=== PATIENT | male | born 1995 | race Caucasian/White ===

== ENCOUNTER 2016-10-25 02:05 | Emergency (ER) | payer SELFPAY ==
[2016-10-25 02:39] VITALS: RESP 16; TEMP 98.2
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
[2016-10-25 03:56] VITALS: BP 138/78; PULSE 84; O2SAT 96
== END 2016-10-25 03:57 | disposition home or self-care (01) ==
PROC: 0HQ3XZZ Repair Left Ear Skin, External Approach (ICD-10-PCS; principal; 2016-10-25)
PROC: 0HQ0XZZ Repair Scalp Skin, External Approach (ICD-10-PCS; 2016-10-25)
DX: S01.312A Laceration without foreign body of left ear, initial encounter (principal); S01.01XA Laceration without foreign body of scalp, initial encounter; Z87.891 Personal history of nicotine dependence; W20.8XXA Other cause of strike by thrown, projected or falling object, initial encounter